=== PATIENT | female | born 1990 | race American Indian/Alaskan Native ===

== ENCOUNTER 2019-07-02 22:36 | Emergency (ER) | payer OTHER ==
[2019-07-02 23:01] VITALS: BP 140/72
[2019-07-02 23:59] LABS: Basophils # (Auto) 0.1 K/mm3 (0.0-0.1); Basophils % (Auto) 0.7 % (0.0-1.8); Eosinophils # (Auto) 0.1 K/mm3 (0.0-0.4); Eosinophils % (Auto) 0.6 % (0.0-4.3); Hematocrit 32.1 % (30.3-42.9); Hemoglobin 10.2 gm/dl (10.1-14.3); Lymphocytes # (Auto) 2.5 K/mm3 (1.2-5.4); Mean Corpuscular HGB Conc 32 % (30-34); Monocytes # (Auto) 0.5 K/mm3 (0.0-0.8); Monocytes % (Auto) 4.7 % (0.0-7.3); Platelet Count 386 K/mm3 (140-440); Red Blood Count 4.92 M/mm3 (3.65-5.03); Red Cell Distribution Width 18.4 % (13.2-15.2)
[2019-07-03] LABS: Mean Corpuscular Volume 65 fl (79-97)
[2019-07-03 00:39] LABS: Alanine Aminotransferase 14 units/L (7-56); BUN/Creatinine Ratio 13; Blood Urea Nitrogen 8 mg/dL (7-17); Calcium 9.4 mg/dL (8.4-10.2); Hemolysis Index 1
[2019-07-03 00:46] LABS: HCG Qualitative,Urine Negative (Negative)
[2019-07-03] MEDS ORDERED: ALUM-MAG HYDROX-SIMETH 200-200-20MG/5ML PO ONE (03:04)
[2019-07-03] MEDS ORDERED: LIDOCAINE VISCOUS 2% PO ONE (03:04)
[2019-07-03] MEDS ORDERED: BENTYL PO ONE (03:05)
[2019-07-03] MEDS ORDERED: PEPCID IV ONE (03:05)
[2019-07-03] MEDS ORDERED: PEPCID PO ONE (03:41)
[2019-07-03] MEDS ORDERED: PEPCID ONE (03:47)
[2019-07-03] MEDS ORDERED: BENTYL ONE (03:47)
[2019-07-03] MEDS ORDERED: ALUM-MAG HYDROX-SIMETH 200-200-20MG/5ML ONE (03:47)
[2019-07-03] MEDS ORDERED: LIDOCAINE VISCOUS 2% ONE (03:47)
--- NOTE | 2019-07-03 06:30 | Emergency Department Report ---
ED Abdominal Pain HPI - General Chief Complaint: Chest Pain Stated Complaint: CHEST PAIN,SOB STOMACH PAIN Time Seen by Provider: 07/03/19 02:50 Source: patient Mode of arrival: Ambulatory Limitations: No Limitations - History of Present Illness Initial Comments: Patient is a 28-year-old female with no past medical history presents to the ED with complaint of acute onset persistent intermittent epigastric pain that radiates to the substernal chest with nausea and vomiting for the last 2 weeks. Patient described the pain as burning, sharp and persistent. Patient states that the pain gets worse with food, Patient denies diarrhea, fever, chills, shortness of breath, vision changes, palpitations, hematemesis, hematochezia, dysuria, urinary frequency and urgency, dizziness, headache or sore throat. MD Complaint: abdominal pain (epigastric), other (substernal chest pain, dyspnea) -: Sudden, week(s) (2) Location: epigastric Radiation: epigastric, chest Migration to: no migration Severity: severe Severity scale (0 -10): 8 Quality: aching, sharp Consistency: intermittent Improves With: nothing Worsens With: eating, vomiting Associated Symptoms: denies other symptoms, nausea, vomiting. denies: diarrhea, fever, constipation, dysuria, hematemesis, hematochezia, melena, hematuria, anorexia, syncope - Related Data LMP (females 10-50): last week Home Medications Medication Instructions Recorded Confirmed Last Taken Sulfamethoxazole/Trimethoprim 08/31/14 08/31/14 08/30/14 [Bactrim DS] Previous Rx's Medication Instructions Recorded Last Taken Type Mupirocin [Bactroban 2% Oint] 1 applic TP TID #1 tube 08/31/14 Unknown Rx Silver Sulfadiazine 1 applic TP BID #85 gram 08/31/14 Unknown Rx Dicyclomine [Bentyl] 20 mg PO Q6H PRN #24 tablet 07/03/19 Unknown Rx Omeprazole 40 mg PO DAILY #30 capsule. 07/03/19 Unknown Rx Ondansetron [Zofran ODT TAB] 8 mg PO Q8HR PRN #20 tab.rapdis 07/03/19 Unknown Rx raNITIdine HCl [Zantac] 150 mg PO Q12H #30 tablet 07/03/19 Unknown Rx Allergies Allergy/AdvReac Type Severity Reaction Status Date / Time No Known Allergies Allergy Unverified 08/31/14 13:19 ED Review of Systems ROS: Stated complaint: CHEST PAIN,SOB STOMACH PAIN Other details as noted in HPI Constitutional: denies: chills, fever Eyes: denies: eye pain, eye discharge, vision change ENT: denies: ear pain, throat pain Respiratory: denies: cough, shortness of breath, wheezing Cardiovascular: chest pain (substernal pain). denies: palpitations Endocrine: no symptoms reported Gastrointestinal: abdominal pain, nausea, vomiting. denies: diarrhea, constipation, hematemesis, melena, hematochezia Genitourinary: denies: urgency, dysuria, discharge Musculoskeletal: denies: back pain, joint swelling, arthralgia Skin: denies: rash, lesions Neurological: denies: headache, weakness, paresthesias Psychiatric: denies: anxiety, depression Hematological/Lymphatic: denies: easy bleeding, easy bruising ED Past Medical Hx - Past Medical History Previous Medical History?: No - Surgical History Past Surgical History?: Yes Additional Surgical History: - Social History Smoking Status: Never Smoker - Medications Home Medications: Home Medications Medication Instructions Recorded Confirmed Last Taken Type Mupirocin [Bactroban 2% Oint] 1 applic TP TID #1 tube 08/31/14 Unknown Rx Silver Sulfadiazine 1 applic TP BID #85 gram 08/31/14 Unknown Rx Sulfamethoxazole/Trimethoprim 08/31/14 08/31/14 08/30/14 History [Bactrim DS] Dicyclomine [Bentyl] 20 mg PO Q6H PRN #24 tablet 07/03/19 Unknown Rx Omeprazole 40 mg PO DAILY #30 capsule.dr 07/03/19 Unknown Rx Ondansetron [Zofran ODT TAB] 8 mg PO Q8HR PRN #20 tab.rapdis 07/03/19 Unknown Rx raNITIdine HCl [Zantac] 150 mg PO Q12H #30 tablet 07/03/19 Unknown Rx ED Physical Exam - General Limitations: No Limitations General appearance: alert, in no apparent distress - Head Head exam: Present: atraumatic, normocephalic, normal inspection - Eye Eye exam: Present: normal appearance, PERRL, EOMI Pupils: Present: normal accommodation - ENT ENT exam: Present: normal exam, normal orophraynx, mucous membranes moist, TM's normal bilaterally, normal external ear exam - Neck Neck exam: Present: normal inspection, full ROM. Absent: tenderness, meningismus - Respiratory Respiratory exam: Present: normal lung sounds bilaterally, chest wall tenderness (probable chest wall tenderness). Absent: respiratory distress, wheezes, rhonchi, accessory muscle use, decreased breath sounds, prolonged expiratory - Cardiovascular Cardiovascular Exam: Present: regular rate, normal rhythm, normal heart sounds. Absent: systolic murmur, diastolic murmur, rubs, gallop - GI/Abdominal GI/Abdominal exam: Present: soft, tenderness (moderately tender epigastric area), normal bowel sounds. Absent: guarding, rebound, hyperactive bowel sounds, hypoactive bowel sounds, organomegaly - Rectal Rectal exam: Present: deferred - Extremities Exam Extremities exam: Present: normal inspection, full ROM, normal capillary refill - Back Exam Back exam: Present: normal inspection, full ROM. Absent: tenderness, CVA tenderness (R), CVA tenderness (L), muscle spasm, paraspinal tenderness, vertebral tenderness - Neurological Exam Neurological exam: Present: alert, oriented X3, CN II-XII intact, normal gait, reflexes normal - Psychiatric Psychiatric exam: Present: normal affect, normal mood - Skin Skin exam: Present: warm, dry, intact, normal color. Absent: rash ED Course Vital Signs 07/02/19 07/02/19 23:00 23:08 Temperature 98.3 F 98.3 F Pulse Rate 83 83 Respiratory 20 20 Rate Blood Pressure 140/72 Blood Pressure 140/72 [Right] O2 Sat by Pulse 100 100 Oximetry - Reevaluation(s) Reevaluation #1: 07/03/19 06:34 This is a 28-year-old [place] female who presented to the ED with epigastric pain that radiates to the substernal area with nausea and vomiting for 2 weeks. In the ED, patient is alert and oriented 3 and is not in distress. Lab test results were reviewed and are all unremarkable including initial troponin and repeat troponin levels. EKG shows normal sinus rhythm with ventricular rate of 76 bpm, no ST or T-wave abnormalities. Chest x-ray shows no acute cardiopulmonary abnormalities. Patient was treated for pain and nausea and vomiting in the ED. Patient was treated with antacids and anti-emetics. On reevaluation, patient's pain is resolved and patient was much better. Patient discharged home on antacids and antiemetics and advised to follow-up with her primary care physician in 7-10 days for reevaluation. Patient was advised to return to the ED immediately if symptoms get worse. ED Medical Decision Making - Lab Data Result diagrams: 07/02/19 23:27 07/02/19 23:27 - EKG Data EKG shows normal: sinus rhythm Rate: normal - EKG Data Interpretation: normal EKG 07/03/19 06:36 Normal sinus rhythm, ventricular rate of 76 bpm, no ST or T-wave abnormalities. - Radiology Data Radiology results: report reviewed, image reviewed Chest x-ray shows no acute cardiopulmonary abnormalities. - Medical Decision Making This is a 28-year-old [place] female who presented to the ED with epigastric pain that radiates to the substernal area with nausea and vomiting for 2 weeks. In the ED, patient is alert and oriented 3 and is not in distress. Lab test results were reviewed and are all unremarkable including initial troponin and repeat troponin levels. EKG shows normal sinus rhythm with ventricular rate of 76 bpm, no ST or T-wave abnormalities. Chest x-ray shows no acute cardiopulmonary abnormalities. Patient was treated for pain and nausea and vomiting in the ED. Patient was treated with antacids and anti-emetics. On reevaluation, patient's pain is resolved and patient was much better. Patient discharged home on antacids and antiemetics and advised to follow-up with her primary care physician in 7-10 days for reevaluation. Patient was advised to return to the ED immediately if symptoms get worse. - Differential Diagnosis EPIGASTRIC PAIN; GASTRITIS; GERD; ACS; Acute UTI; Gallstones Critical care attestation.: If time is entered above; I have spent that time in minutes in the direct care of this critically ill patient, excluding procedure time. ED Disposition Clinical Impression: Nonspecific chest pain, Acute epigastric pain, Nausea and vomiting in adult GERD (gastroesophageal reflux disease) Qualifiers: Esophagitis presence: without esophagitis Qualified Code(s): K21.9 - Gastro- esophageal reflux disease without esophagitis Disposition: - TO HOME OR SELFCARE Is pt being admited?: No Does the pt Need Aspirin: No Condition: Stable Instructions: Chest Pain (ED), Gastroesophageal Reflux Disease (ED), Acute Nausea and Vomiting (ED) Additional Instructions: Take medications with food, drink plenty of fluids and follow-up with your primary care physician in 7-10 days for reevaluation. Return to the ED immediately if symptoms get worse. Prescriptions: Dicyclomine [Bentyl] 20 mg PO Q6H PRN #24 tablet PRN Reason: Pain , Severe (7-10) Omeprazole 40 mg PO DAILY #30 capsule. raNITIdine HCl [Zantac] 150 mg PO Q12H #30 tablet Ondansetron [Zofran ODT TAB] 8 mg PO Q8HR PRN #20 tab.rapdis PRN Reason: Nausea Referrals: DWAYNE LASSITER MD [Primary Care Provider] - 3-5 Days Time of Disposition: 06:28 Print Language: CHINESE
--- NOTE | 2019-07-04 15:04 | XRay Report ---
CHEST 2 VIEWS INDICATION: S O B COUGH. COMPARISON: None FINDINGS: Support devices: None. Heart: Within normal limits. Lungs/pleura: No acute air space or interstitial disease. No pneumothorax. Additional findings: None. IMPRESSION: 1. No acute findings. Signer Name: Emmanuel Jones MD Signed: 07/03/2019 1:21 AM Workstation Name: [id number]
== END 2019-07-03 06:45 | disposition home or self-care (01) ==
LOC: ED 22:36
DX: K21.9 Gastro-esophageal reflux disease without esophagitis (principal); R11.2 Nausea with vomiting, unspecified; Z98.890 Other specified postprocedural states; Z79.899 Other long term (current) drug therapy
CPT/HCPCS: 36415; 71046; 80053; 81025; 83690; 84484; 85025; 93005; 93010; 99284